=== PATIENT | female | born 1990 | race Caucasian/White ===

== ENCOUNTER → 2020-12-10 11:57 | Emergency (ER) | payer OTHER, SELFPAY ==
--- NOTE | 2020-12-10 12:41 | PC.NURSE ---
Pt arrived to ED via [facility] from [facility] - upon arrival EMS states pt was angry that she was going to the . Pt walked out - EMS states gait was steady.
== END | disposition left against medical advice (07) ==
DX: Z53.21 Procedure and treatment not carried out due to patient leaving prior to being seen by health care provider (principal)
CPT/HCPCS: 99199

== ENCOUNTER 2020-12-25 11:29 | Emergency (ER) | payer OTHER, SELFPAY ==
[2020-12-25 11:39] VITALS: BP 134/81; PULSE 96; RESP 18; TEMP 36.8; O2SAT 98
--- NOTE | 2020-12-25 11:49 | ED.URI ---
HPI - URI/Sore Throat General Chief Complaint: Upper Respiratory Infection Stated Complaint: Cough,Runny Nose Time Seen by Provider: 12/25/20 11:45 Source: patient and RN notes reviewed Mode of arrival: ambulatory Limitations: no limitations History of Present Illness HPI Narrative: Ashley is a 30-year-old female patient who ambulated into the [facility]. Patient states she has a 3-day history of shortness of breath and pain with deep inspiration. Patient stated she had an upper respiratory cold-like symptoms for the last 2 weeks. She started to feel better and then 2 days ago started having cough with green sputum and increased fever Related Data Allergies Allergy/AdvReac Type Severity Reaction Status Date / Time No Known Allergies Allergy Verified 12/25/20 11:44 Review of Systems Review of Systems: CONSTITUTIONAL: Denies body aches, fever, chills, or sweats. EYES: Denies visual changes, redness, or discharge. ENT: Denies rhinorrhea,+ congestion, denies sore throat, or otalgia. CARDIOVASCULAR: Denies chest pain, palpitations, or edema. RESPIRATORY: + cough or dyspnea. GASTROINTESTINAL: Denies abdominal pain, nausea, vomiting, or diarrhea. GENITOURINARY: Denies dysuria or hematuria. SKIN: Denies rash, itching, or wounds. MUSCULOSKELETAL: Denies back pain, joint pain, or myalgia. NEUROLOGIC: Denies headache, numbness, tingling, or weakness. PSYCH: Denies depression or anxiety. All systems reviewed & are unremarkable except as noted in HPI and below PMFSH Comments Reviewed. Pt has been instructed to follow up with her PCP regarding her elevated blood pressure today. Exam Narrative: GENERAL: Well-appearing, well-nourished, and in no acute distress. HEAD: Normocephalic, atraumatic. EYES: EOMI. No redness or drainage. Conjunctivae normal. ENT: Mucous membranes pink and moist. Nares clear. No rhinorrhea. TMs normal bilaterally. Throat normal. Uvula midline. NECK: Normal AROM. Supple. No lymphadenopathy. CHEST: No respiratory distress. Expiratory wheeze noted . MUSCULOSKELETAL: No bony tenderness. EXTREMITIES: Normal range of motion. No edema. SKIN: Warm, dry, no rash. Capillary refill normal. Normal skin turgor. NEURO: No focal deficits. Alert and oriented x3. Gait steady. PSYCH: Normal affect. No signs of depression or anxiety. Course Vital Signs Vital signs: Vital Signs Temperature 36.8 C 12/25/20 11:39 Pulse Rate 96 12/25/20 11:39 Respiratory Rate 18 12/25/20 11:39 Blood Pressure 134/81 12/25/20 11:39 Pulse Oximetry 98 12/25/20 11:39 Temperature 36.8 C 12/25/20 11:39 Pulse Rate 96 12/25/20 11:39 Respiratory Rate 18 12/25/20 11:39 Blood Pressure 134/81 12/25/20 11:39 Pulse Oximetry 98 12/25/20 11:39 Reviewed. Pt has been instructed to follow up with her PCP regarding her elevated blood pressure today. MDM - URI/Sore Throat MDM Narrative Medical decision making narrative: Patient had a 2-week history of an upper respiratory infection. Patient got better and now is coughing up green sputum, pain with deep inspiration. Patient will be treated with Augmentin and prednisone. Differential Diagnosis Differential diagnosis: Likely upper respiratory infection, otitis media, viral infection and bronchitis Medical Records Attestation: I reviewed the patient's medical records. Critical Care Time Critical Care Time Critical Care Time: No Discharge Plan Discharge Clinical Impression: Bronchitis Patient Disposition: Home, Self-Care Condition: Stable Instructions: Antibiotic Form, Acute Bronchitis (ED) Additional Instructions: Increase fluids. Take medication with food. Follow up with primary care physician in 3-5 days for continued symtpoms Go to ED for severe shortness of breath, high fever, or any other severe symptoms. Your blood pressure was elevated above 120/80 today at Urgent Care. This puts you above the threshold for follow up. Please schedule a
== END 2020-12-25 11:55 | disposition home or self-care (01) ==
PROVIDERS: Emergency Provider Nurse Practitioner Family
DX: J40 Bronchitis, not specified as acute or chronic (principal)
CPT/HCPCS: 99213; G0463

== ENCOUNTER 2022-07-25 19:27 | Emergency (ER) | payer OTHER, SELFPAY ==
--- NOTE | 2022-07-25 19:29 | ED_ITS ---
HPI - General Adult General Chief complaint: Shortness of Breath/Dyspnea Stated complaint: Arm Pain/SOB/Headache/High B/P Time Seen by Provider: 07/25/22 19:49 Mode of arrival: ambulatory Limitations: no limitations History of Present Illness HPI narrative: 32-year-old female presents with concern for shortness of breath, whole-body tingling, lightheadedness, fast heart rate. She reports symptoms started this morning. Reports she had recently been on Suboxone, it she relapsed and used methamphetamine for 3 days, her last use was at 2:00 a.m.. She reports she started having the symptoms intermittently this morning and they have worsened. MD complaint: Shortness of breath Related Data Home Medications Medication Instructions Recorded Confirmed buprenorphine 4 mg-naloxone 1 mg 1 film BID 07/25/22 07/25/22 sublingual film (Suboxone) Allergies Allergy/AdvReac Type Severity Reaction Status Date / Time No Known Allergies Allergy Verified 12/25/20 11:44 Review of Systems Review of Systems: CARDIOVASCULAR: Denies chest pain. Reports palpitations, RESPIRATORY: Reports dyspnea. SKIN: Reports whole body tingling NEUROLOGIC: Denies weakness, or headache. PSYCHIATRIC: Reports anxiety All systems reviewed & are unremarkable except as noted in HPI and below PMFSH Comments At time of signature, agree with nursing past medical, surgical, social and family history. There is no relevant family history pertinent to the presenting complaint Exam Narrative: GENERAL: Ill-appearing HEAD: Normocephalic EYES: PERRLA, sclera clear ENT: Mucous membranes moist. NECK: Supple. CHEST: Tachypneic clear to auscultation. No bony deformities, no asymmetry. Conversational dyspnea HEART: Tachycardic, Normal peripheral pulses. SKIN: Warm, dry NEURO: Alert and oriented x3. PSYCH: Anxious Course Course Emergency Course: Patient is aware of, understands and agrees be transferred to the emergency department via EMS. Portions of this record may have been created with voice recognition software Level of Care: Express Care Visit Vital Signs Vital signs: Reviewed. Transfer Transfered to: [facility] Transfer rationale: Shortness of breath, EKG changes, acute substance withdrawal Accepting physician: Juan F Medical Decision Making MDM Narrative Medical decision making narrative: Exam findings warrant further evaluation emergency department ECG Data EKG #1: ECG completion date: 07/25/22 ECG completion time: 19:53 Prior ECG tracings: not available for review Interpretation: Rate 133, MS interval 128, QRS duration 86, QT 332, QTC 410, T-wave abnormality EKG Interpretation: tachycardia and non-specific ST changes Critical Care Time Critical Care Time Critical Care Time: No Discharge Plan Discharge Prescriptions: No Action buprenorphine-naloxone [Suboxone] 4-1 mg Film 1 film BID Follow-up/Referrals: UNKNOWN,DOCTOR [Non-Staff] -
[2022-07-25 19:35] VITALS: BP 163/112; PULSE 84; RESP 16; TEMP 36.9; O2SAT 100
[2022-07-25 19:36] VITALS: BP 163/112; PULSE 84; RESP 16; TEMP 36.9; O2SAT 100
--- NOTE | 2022-07-25 19:47 | ECG_ITS ---
Rate RI QRSd QT QTc P QRS T Severity 133 128 86 332 495 66 74 69 No Severity Defined SINUS TACHYCARDIA NONSPECIFIC ST & T-WAVE ABNORMALITY ABNORMAL RHYTHM ECG NO PREVIOUS ECG AVAILABLE FOR COMPARISON Electronically Signed On 07-27-2022 13:38:11 CDT by Keith DE SANTIAGO
== END 2022-07-25 20:05 | disposition short-term general hospital (02) ==
LOC: EXPCOLL 19:30
PROVIDERS: Emergency Provider Nurse Practitioner
DX: R06.02 Shortness of breath (principal)
CPT/HCPCS: 93005; 99215; G0463

== ENCOUNTER 2022-07-25 20:17 | Emergency (ER) | payer OTHER, SELFPAY ==
[2022-07-25 20:29] VITALS: BP 150/109; PULSE 115; RESP 24; TEMP 36.4; O2SAT 100
--- NOTE | 2022-07-25 20:30 | ECG_ITS ---
Rate 94 VA 144 QRSd 89 QT 352 QTc 441 --[place]-- P 68 QRS 64 T 55 SINUS RHYTHM WITH SINUS ARRHYTHMIA NO PREVIOUS ECG AVAILABLE FOR COMPARISON Electronically Signed On 07-26-2022 9:08:54 CDT by Keith DE SANTIAGO
[2022-07-25 21:39] VITALS: BP 142/92; PULSE 92; RESP 16; O2SAT 100
== END 2022-07-26 02:00 | disposition left against medical advice (07) ==
PROVIDERS: Emergency Provider Emergency Medicine
DX: R20.0 Anesthesia of skin (principal)
CPT/HCPCS: 93005; 99199